=== PATIENT | male | born 1990 | race Caucasian/White ===

== ENCOUNTER 2022-06-19 14:29 | Emergency (ER) | payer OTHER ==
[2022-06-19 14:38] VITALS: RESP 18; TEMP 97; BMI 25.5
[2022-06-19 17:34] LABS: EOS % 2.7 % (0-4.5); HEMATOCRIT 47.8 % (35.4-49); HEMOGLOBIN 16.7 GM/dL (11.7-16.9); LYMPH % 27.8 % (8-40); MCHC 34.9 g/dl (32.0-35.9); MEAN CELL VOLUME 85.9 fl (80-96); MONO % 7.4 % (3.8-10.2); NEUT % 61.1 % (42.8-82.8); PLATELET COUNT 223 10^3/uL (134-434); RBC 5.56 M/mm3 (4.00-5.60); WHITE BLOOD COUNT 6.4 K/mm3 (4.0-10.0)
[2022-06-19 17:47] LABS: CALCIUM 8.9 mg/dL (8.5-10.1)
[2022-06-19 17:48] LABS: ALBUMIN 3.8 g/dl (3.4-5.0); BLOOD UREA NITROGEN 12.1 mg/dL (7-18)
[2022-06-19 17:50] LABS: CREATININE 0.9 mg/dL (0.55-1.3)
[2022-06-19 17:52] LABS: TOT PROT 7.5 g/dl (6.4-8.2)
[2022-06-19 17:53] LABS: BILIRUBIN,TOTAL 0.4 mg/dL (0.2-1)
[2022-06-19 18:15] VITALS: BP 136/80; PULSE 80
== END 2022-06-19 18:15 | disposition home or self-care (01) ==
LOC: JER 14:29
DX: R07.9 Chest pain, unspecified (principal)
CPT/HCPCS: 36415; 71046-TC-FY; 80053; 84484; 85025; 93005; 93010; 99284-25